=== PATIENT | male | born 1960 | race Two or more races ===

== ENCOUNTER 2024-04-17 20:18 | Emergency (ER) | payer BC ==
[~2024-04-17] VITALS: Ht 170.2 cm; Wt 74.8 kg
[2024-04-17 23:00] VITALS: BP 125/75; TEMP 98.5; O2SAT 98
== END 2024-04-17 22:20 | disposition home or self-care (01) ==
LOC: ER 20:18
DX: T16.2XXA Foreign body in left ear, initial encounter (principal); W44.9XXA Unspecified foreign body entering into or through a natural orifice, initial encounter; Y93.9 Activity, unspecified; Y92.9 Unspecified place or not applicable; Y99.9 Unspecified external cause status
CPT/HCPCS: A4606; A4663